=== PATIENT | male | born 1980 | race Caucasian/White ===

== ENCOUNTER 2016-06-11 18:52 | Emergency (ER) | payer SELFPAY ==
[2016-06-11 18:58] VITALS: TEMP 98.7; BMI 47.1
--- NOTE | 2016-06-11 19:14 | EDPRACDOC ---
- General Information Chief Complaint: Abdominal Pain Stated Complaint: ABDOMINAL PAIN Time Seen by Provider: 06/11/16 19:09 Mode Of Arrival: Car Home Medications: Home Medications Hydrocodone Bit/Acetaminophen [Hydrocodon-Acetaminophen 5-325] 1 tab PO Q6 PRN # 15 tab 06/11/16 Ondansetron [Zofran Odt] 4 mg PO TID PRN #10 tab.rapdis 06/11/16 Allergies/Adverse Reactions: Allergies Allergy/AdvReac Type Severity Reaction Status Date / Time Penicillins Allergy Severe Anaphylaxis Verified 06/11/16 18:57 * - History of Present Illness Onset: 2 DAYS HPI: PT COMPLAINS OF MID ABD PAIN, DESCRIBED ACHING, SHARP AT TIMES, WORSE WITH STANDING, STATES HE HAS A "BULGE" IN THE TOP OF HIS BELLYBUTTON. PT DENIES FEVER OR CHILLS, PT STATES HAS NAUSEA BUT NO VOMITING. Pain Location: Reports: Periumbilical Pain Context: Reports: Spontaneous Pain Severity: Severe Pain Quality: Reports: Aching, Sharp Pain Radiation: Reports: No Radiation Adult Abdominal History: Denies: Abdominal Surgery, Urolithiasis, Bowel Obstruction, Similar Pain (dx) Modifying Factors: improves with: Position, Movement Associated Signs & Symptoms: Reports: Nausea. Denies: Frequency, Hematuria, Vomiting, Hematemesis, Anorexia, Diarrhea, Melena, Dysuria, Fever, Urgency, Chills ED Past Medical History - History Reviewed Yes Nurses notes reviewed and agree except as marked No Past Medical History: Yes Patient has no past medical history - Social Medical History Smoking Status: Former smoker ETOH: None Substance Abuse: None EDM Review of Systems - Review of Systems Constitutional: negative: Chills, Fever Eyes: negative: Blurred Vision, Double Vision Ears: negative: Drainage Throat: negative: Pain Nose: negative: Congestion, Discharge Respiratory: negative: Cough, Shortness of Breath, Wheezing Cardiovascular: negative: Chest Pain, Palpitations Gastrointestinal: Nausea, Pain. negative: Diarrhea, Vomiting Genitourinary: negative: Dysuria, Frequency Neurological: negative: Dizziness, Headache, Numbness, Weakness Musculoskeletal: No Symptoms Reported Integumentary: No Symptoms Reported - Physical Exam Constitutional: Alert (Awake), No apparent distress Oriented to: Time, Person, Place Last recorded Vital Signs: Last Vital Signs Temp 98.7 F 06/11/16 18:55 Pulse 84 06/11/16 19:34 Resp 20 06/11/16 19:34 BP 149/86 06/11/16 19:34 Pulse Ox 95 06/11/16 19:34 Oxygen Pulse Oxygen Saturation 95 O2 Device Room Air Oxygen Flow Rate Fraction of Inspired Oxygen ( FIO2) - HEENT Head: Normal ( normocephalic) Eye Exam: Normal (PERRL, EOMI, Sclera white) Oropharynx: Normal (Pharynx:Moist without exudate,Gums-no swelling) Tympanic Membrane: Normal ENT EAC: Normal TMJ: Normal Nose: No Symptoms Reported (septum midline) Neck: Normal (FROM, trachea at midline) - Respiratory/Cardiovascular Respiratory: Normal - CTA (BBS clear to auscultation without adventitious sounds ) Cardiovascular: Normal (RRR without murmur, gallop or rub) - GI Auscultation: Normal (NABS) Palpation: Normal (Soft,No rebound or guarding, non distended) Tenderness: Diffuse, Moderate, Periumbilical (+ HERNIA, SOFT, NOT REDUCIBLE) Queen's Sign: Negative - Musculoskeletal Back: Normal (Non-Tender) Extremities: Normal (Normal tone, Pulses 2+ No cyanosis or edema, FROM) - Integumentary Skin: Normal, Warm, Dry Lymphatics: Normal (no adenopathy) - Neurologic Memory Impaired: Normal Motor Function: Normal (Normal tone, Pulses 2+ No cyanosis or edema, FROM) Cranial Nerve: Normal (CN II-X11 intact sensation, strength 5/5) Cerebellar: Normal Mood Description: Normal Perception: Normal - Differential Diagnosis Appendicitis, Bowel Obstruction, Cholecystitis, Cholelithiasis, Constipation, DKA, Diverticulitis, Gastroenteritis, IBS, Pancreatitis, UTI - Results 06/11/16 19:06 06/11/16 19:06 WBC 12.8 xk/uL (3.8-10.8) H 06/11/16 19:06 RBC 5.30 xM/uL (4.70-6.10) 06/11/16 19:06 Hgb 14.4 g/dL (14.0-18.0) 06/11/16 19:06 Hct 44.4 % (42-52) 06/11/16 19:06 MCV 84 fL (80-94) 06/11/16 19:06 MCH 27.2 pg (27-32) 06/11/16 19:06 MCHC 32.5 g/dl (33-36) L 06/11/16 19:06 RDW 15.2 % (11.5-14.5) H 06/11/16 19:06 Plt Count 245 xk/uL (130-400) 06/11/16 19:06 MPV 9.4 fL (7.4-10.4) 06/11/16 19:06 Neut % (Auto) 64.4 % (45-76) 06/11/16 19:06 Lymph % (Auto) 21.7 % (17-44) 06/11/16 19:06 [place] % (Auto) 11.6 % (3-10) H 06/11/16 19:06 Eos % (Auto) 1.6 % (0-5) 06/11/16 19:06 Baso % (Auto) 0.7 % (0-2) 06/11/16 19:06 Absolute Neuts (auto) 8.19 xk/uL (1.7-8.2) 06/11/16 19:06 Absolute Lymphs (auto) 2.69 xk/uL (0.65-4.75) 06/11/16 19:06 Sodium 144 mEq/L (137-146) 06/11/16 19:06 Potassium 4.1 mEq/L (3.5-5.1) 06/11/16 19:06 Chloride 107 mEq/L (98-107) 06/11/16 19:06 Carbon Dioxide 24 mMOL/L (22-33) 06/11/16 19:06 Anion Gap 17 mEq/L (8-16) H 06/11/16 19:06 BUN 12 MG/DL (9-20) 06/11/16 19:06 Creatinine 0.80 MG/DL (0.66-1.25) 06/11/16 19:06 Estimated GFR (MDRD) > 60 mL/min (>=60) 06/11/16 19:06 Glucose 99 MG/DL (70-99) 06/11/16 19:06 Calculated Osmolality 277 MOs/Kg (270-290) 06/11/16 19:06 Calcium 8.9 MG/DL (8.4-10.2) 06/11/16 19:06 Total Bilirubin 0.5 MG/DL (0.2-1.3) 06/11/16 19:06 AST 24 IU/L (17-59) 06/11/16 19:06 ALT 48 IU/L (21-72) 06/11/16 19:06 Alkaline Phosphatase 71 IU/L (38-126) 06/11/16 19:06 Total Protein 7.4 G/DL (6.3-8.2) 06/11/16 19:06 Albumin 4.2 G/DL (3.5-5.0) 06/11/16 19:06 Lipase 54 U/L (23-300) 06/11/16 19:06 Urine Color Yellow 06/11/16 19:06 Urine Clarity Clear 06/11/16 19:06 Urine pH 5.0 (5.0-8.0) 06/11/16 19:06 Ur Specific [place] 1.020 (1.003-1.035) 06/11/16 19:06 Urine Protein Neg (NEG/TRACE) 06/11/16 19:06 Urine Glucose (UA) Neg (NEGATIVE) 06/11/16 19:06 Urine Ketones Neg (NEGATIVE) 06/11/16 19:06 Urine Occult Blood Neg (NEG/TRACE) 06/11/16 19:06 Urine Nitrite Neg (NEGATIVE) 06/11/16 19:06 Urine Bilirubin Neg (NEGATIVE) 06/11/16 19:06 Urine Urobilinogen <2.0 MG/DL (0-1) 06/11/16 19:06 Ur Leukocyte Esterase Neg (NEGATIVE) 06/11/16 19:06 Urine RBC 0-2 (0-2) 06/11/16 19:06 Urine WBC 2-5 (0-2) H 06/11/16 19:06 Ur Epithelial Cells Occ 06/11/16 19:06 Urine Mucus Sm amt (NEG/OCC) 06/11/16 19:06 Lab Results 06/11/16 06/11/16 06/11/16 19:06 19:06 19:06 WBC 12.8 H RBC 5.30 Hgb 14.4 Hct 44.4 MCV 84 MCH 27.2 MCHC 32.5 L RDW 15.2 H Plt Count 245 MPV 9.4 Neut % (Auto) 64.4 Lymph % (Auto) 21.7 [place] % (Auto) 11.6 H Eos % (Auto) 1.6 Baso % (Auto) 0.7 Absolute Neuts (auto) 8.19 Absolute Lymphs (auto) 2.69 Sodium 144 Potassium 4.1 Chloride 107 Carbon Dioxide 24 Anion Gap 17 H BUN 12 Creatinine 0.80 Estimated GFR (MDRD) > 60 Glucose 99 Calculated Osmolality 277 Calcium 8.9 Total Bilirubin 0.5 AST 24 ALT 48 Alkaline Phosphatase 71 Total Protein 7.4 Albumin 4.2 Lipase 54 Urine Color Yellow Urine Clarity Clear Urine pH 5.0 Ur Specific [place] 1.020 Urine Protein Neg Urine Glucose (UA) Neg Urine Ketones Neg Urine Occult Blood Neg Urine Nitrite Neg Urine Bilirubin Neg Urine Urobilinogen <2.0 Ur Leukocyte Esterase Neg Urine RBC 0-2 Urine WBC 2-5 H Ur Epithelial Cells Occ Urine Mucus Sm amt - Diagnostic Imaging CT ABD/PELVIS Image interpreted by: Radiologist 06/11/16 20:28 CT ABDOMEN AND PELVIS WITH CONTRAST TECHNIQUE: Multidetector CT imaging of the abdomen and pelvis was performed using the standard protocol following bolus administration of intravenous contrast. Sagittal and coronal MPR images reconstructed from axial data set. CONTRAST: 100 cc Isovue 370 IV. No oral contrast administered. COMPARISON: 07/05/2012 FINDINGS: Lung bases clear. Questionable tiny LEFT renal cyst 10 mm diameter. Liver, gallbladder, spleen, pancreas, kidneys, and adrenal glands otherwise normal. Degradation of image quality secondary to body habitus. Normal appendix. Stomach and bowel loops unremarkable. Normal appearing bladder and ureters. Large umbilical hernia containing fat, defect 3.5 x 4.7 cm. No mass, adenopathy, free air, free fluid, or inflammatory process. No acute osseous findings. IMPRESSION: Large umbilical hernia containing fat. Otherwise negative exam. Decision Time to Discharge: 20:28 - Departure Disposition: Home Condition: Stable Final Diagnosis: Abdominal pain, Umbilical hernia without obstruction and without gangrene Instructions: Umbilical Hernia (ED) Education/Counseling Given To: Patient Education/Counseling Given Regarding: Diagnosis, Treatment, Prognosis, Follow Up Referrals: Jason Webster DO [Staff Physician] - One Week Prescriptions: Hydrocodone Bit/Acetaminophen [Hydrocodon-Acetaminophen 5-325] 1 tab PO Q6 PRN # 15 tab PRN Reason: Pain Ondansetron [Zofran Odt] 4 mg PO TID PRN #10 tab.rapdis PRN Reason: Nausea/Vomiting Additional Instructions: RETURN TO THE ED FOR ANY WORSENING SYMPTOMS OR CONCERNS.
[2016-06-11] MEDS ORDERED: NS 1,000 ML IV ONE (19:16)
[2016-06-11] MEDS ORDERED: ONDANSETRON HCL 4 MG/2 ML VIAL IV ONE (19:16)
[2016-06-11] MEDS ORDERED: MORPHINE 4 MG/ML INJECTION IV ONE (19:16)
[2016-06-11 19:18] LABS: AUTOMATED BASOPHIL 0.7 % (0-2); AUTOMATED EOSINOPHIL 1.6 % (0-5); AUTOMATED LYMPH 21.7 % (17-44); AUTOMATED MONOCYTE 11.6 % (3-10); AUTOMATED NEUTROPHIL 64.4 % (45-76); MPV 9.4 fL (7.4-10.4)
[2016-06-11 19:22] LABS: LEUKOCYTES/URINE NEG (NEGATIVE); NITRITE/URINE NEG (NEGATIVE); RBC/URINE 0-2 (0-2); URINE OCCULT BLOOD NEG (NEG/TRACE)
[2016-06-11 19:40] LABS: BLOOD UREA NITROGEN 12 MG/DL (9-20); CALCIUM 8.9 MG/DL (8.4-10.2); CALCULATED OSMOLALITY 277 MOs/Kg (270-290); CHLORIDE 107 mEq/L (98-107); GLUCOSE 99 MG/DL (70-99); SODIUM LEVEL 144 mEq/L (137-146); TOTAL PROTEIN 7.4 G/DL (6.3-8.2)
[2016-06-11] MEDS ORDERED: Pharmacy Review for Metformin - IV Contrast Given SCH (20:00)
--- NOTE | 2016-06-11 20:26 | DIRPT ---
CLINICAL DATA: Mid abdominal pain for 3 days, umbilical hernia EXAM: CT ABDOMEN AND PELVIS WITH CONTRAST TECHNIQUE: Multidetector CT imaging of the abdomen and pelvis was performed using the standard protocol following bolus administration of intravenous contrast. Sagittal and coronal MPR images reconstructed from axial data set. CONTRAST: 100 cc Isovue 370 IV. No oral contrast administered. COMPARISON: 07/05/2012 FINDINGS: Lung bases clear. Questionable tiny LEFT renal cyst 10 mm diameter. Liver, gallbladder, spleen, pancreas, kidneys, and adrenal glands otherwise normal. Degradation of image quality secondary to body habitus. Normal appendix. Stomach and bowel loops unremarkable. Normal appearing bladder and ureters. Large umbilical hernia containing fat, defect 3.5 x 4.7 cm. No mass, adenopathy, free air, free fluid, or inflammatory process. No acute osseous findings. IMPRESSION: Large umbilical hernia containing fat. Otherwise negative exam. Electronically Signed By: Balta Rivera M.D. On: 06/11/2016 20:24
[2016-06-11 20:40] VITALS: BP 152/82; PULSE 79
== END 2016-06-11 20:38 | disposition home or self-care (01) ==
LOC: ED 18:52
DX: K42.9 Umbilical hernia without obstruction or gangrene (principal)
CPT/HCPCS: 36415; 74177; 80053; 81001; 83690; 85025; 96361; 96374; 96375; 99284; A9698; J2270; J2405